=== PATIENT | female | born 1980 | race Caucasian/White ===

== ENCOUNTER 2023-03-23 22:38 | Emergency (ER) | payer SELFPAY ==
[2023-03-24 00:29] LABS: Absolute Lymphocytes (CBC) 3.9 K/uL (0.7-4.9); Hematocrit 25.3 % (36.0-45.0); MCV 78.2 fL (80-100); MPV 8.5 fL (7.6-11.3); Platelets 301 thou/uL (152-406); RBC Red Blood Cell Count 3.23 M/uL (3.86-4.86)
[2023-03-24 00:44] LABS: Specific Gravity 1.032 (1.005-1.030)
[2023-03-24 00:46] LABS: Specific Gravity > 1.030 (1.005-1.030); Urine Bacteria None Seen /HPF (<20); Urine Bilirubin NEGATIVE (Negative); Urine Blood Trace (Negative); Urine Clarity Turbid (Clear); Urine Color Yellow (Yellow); Urine Glucose NEGATIVE (Negative); Urine Mucus 4+ /HPF (None Seen); Urine Protein 1+ (Negative); Urine RBC <5 /HPF (None Seen); Urine Urobilinogen 1+ (Normal); Urine pH 5.5 (5.0-7.0)
[2023-03-24 00:48] LABS: Albumin 3.8 g/dL (3.4-5.0); Bilirubin Total 0.4 mg/dL (0.2-1.0); Potassium 3.7 mEq/L (3.5-5.1); Protein, Total 7.7 g/dL (6.4-8.2)
--- NOTE | 2023-03-24 01:25 | EDPHYS ---
Physician Documentation [facility] Name: Carmen Jimenez Age: 42 yrs Sex: Female : 1980 Arrival Date: 03/23/2023 Time: 22:38 Bed 12 Private MD: ED Physician Toño Nickerson HPI: 03/23 23:57 This 42 yrs old Female presents to ER via Ambulatory with complaints of Vaginal rn Bleeding, Abdominal Pain. 23:57 The patient presents with vaginal bleeding that is moderate, with clots. Onset: The rn symptoms/episode began/occurred 3 day(s) ago. Modifying factors: The symptoms are alleviated by nothing, the symptoms are aggravated by nothing. Associated signs and symptoms: Pertinent positives: cramping, Pertinent negatives: fever. Severity of symptoms: At their worst the symptoms were moderate, in the emergency department the symptoms are unchanged. The patient has experienced similar episodes in the past. Patient reports irregular periods for a long time, has been told she has anemia in the past, has never been here before and does not recall her baseline hemoglobin. Reports this current menstrual period is heavier than normal and has been bleeding for 3 days, worse today. Denies any syncope. No blood thinners. Just moved here.. Historical: - Allergies: 23:16 Zithromax Z-Miguelangel; pf1 23:16 Morphine; pf1 - PMHx: 23:16 thyroid cancer; Anemia; pf1 - PSHx: 23:16 partial thyroidectomy; Ligation of fallopian tube; pf1 - Immunization history:: Adult Immunizations up to date, Client reports having NOT received the Covid vaccine. Last tetanus immunization: < 10 years ago Flu vaccine is not up to date. - Social history:: Smoking status: Patient denies any tobacco usage or history of. Patient uses street drugs, marijuana, Patient/guardian denies using alcohol. - Family history:: not pertinent. - Hospitalizations: : No recent hospitalization is reported. ROS: 23:57 Constitutional: Negative for fever, chills, and weight loss, Cardiovascular: Negative rn for chest pain, palpitations, and edema, Respiratory: Negative for shortness of breath, cough, wheezing, and pleuritic chest pain, Abdomen/GI: Positive for lower abdominal cramping : Positive for vaginal bleeding Neuro: Positive for generalized weakness Exam: 23:57 Constitutional: This is a well developed, well nourished patient who is awake, alert, rn and in no acute distress. Head/Face: Normocephalic, atraumatic. Cardiovascular: Regular rate and rhythm. No pulse deficits. Respiratory: Speaking full sentences, unlabored. No increased work of breathing, no retractions or nasal flaring. Abdomen/GI: Soft, nontender, no rebound Skin: Warm, dry MS/ Extremity: Pulses equal, no cyanosis. Neuro: Awake and alert, GCS 15 Vital Signs: 23:02 BP 113 / 77; Pulse 70; Resp 18; Temp 97.7; Pulse Ox 100% on R/A; Weight 111.13 kg; pf1 Height 5 ft. 9 in. ; 03/24 00:30 BP 105 / 77; Pulse 63; Resp 16; Pulse Ox 99% on R/A; Pain 0/10; pf1 03/23 23:02 Body Mass Index 36.18 (111.13 kg, 175.26 cm) pf1 03/24 00:30 Pain Scale: Adult pf1 MDM: 03/23 22:51 Patient medically screened. rn 03/24 01:23 Differential diagnosis: menometrorrhagia, menorrhea, ovarian cyst, uterine fibroids. rn 01:24 Data reviewed: vital signs, nurses notes, lab test result(s), radiologic studies, rn ultrasound, and as a result, I will discharge patient. Counseling: I had a detailed discussion with the patient and/or guardian regarding the historical points, exam findings, and any diagnostic results supporting the discharge/admit diagnosis, lab results, radiology results, the need for outpatient follow up, to return to the emergency department if symptoms worsen or persist or if there are any questions or concerns that arise at home. Special discussion: I discussed with the patient/guardian in detail that at this point there is no indication for admission to the hospital. It is understood, however, that if the symptoms persist or worsen the patient needs to return immediately for re-evaluation. Based on the history and exam findings, there is no indication for further emergent testing or inpatient evaluation. I discussed with the patient/guardian the need to see the OB Gyne specialist for further evaluation of the symptoms. ED course: Ultrasound shows uterine fibroid and ovarian cyst. No other acute findings. Stable vital signs. Hemoglobin is 8.5 and likely near patient's baseline. Patient states has been bleeding like this since her 20s and iron tablets do not agree with her. Recommend gynecological follow-up and given return precautions. No indication for emergent transfusion at this time.. 03/23 23:16 Order name: CBC with Diff; Complete Time: 00:55 rn 03/23 23:16 Order name: CMP; Complete Time: 00:55 rn 03/23 23:16 Order name: Test, Urine; Complete Time: 00:55 rn 03/23 23:16 Order name: Urinalysis w/ reflexes; Complete Time: 00:55 rn 03/23 23:16 Order name: US Pelvis Complete rn 03/23 23:16 Order name: IV Saline Lock; Complete Time: 00:19 rn 03/23 23:16 Order name: Labs collected and sent; Complete Time: 00:19 rn Administered Medications: No medications were administered Disposition Summary: 03/24/23 01:25 Discharge Ordered Location: Home rn Problem: an ongoing problem rn Symptoms: are unchanged rn Condition: Stable rn Diagnosis - Leiomyoma of uterus, unspecified rn - Abnormal uterine and vaginal bleeding, unspecified rn - Anemia, unspecified rn Followup: rn - With: Private Physician - When: As needed - Reason: Recheck today's complaints, Re-evaluation by your physician Discharge Instructions: - Discharge Summary Sheet rn - Abnormal Uterine Bleeding rn - Uterine Fibroids rn Forms: - Medication Reconciliation Form rn - Thank You Letter rn - Antibiotic family law attorney - Prescription Opioid Use rn - Patient Portal Instructions rn - Leadership Thank You Letter rn Prescriptions: - Myfembree 40-1-0.5 mg Oral tablet - take 1 tablet by ORAL route daily; 30 tablet; Refills: 0, Product Selection rn Permitted Signatures: Dispatcher [employer] Toño Hernandez MD MD rn Finley, Pamala, RN RN pf1
--- NOTE | 2023-03-24 01:25 | ER ---
Nurse's Notes [facility] Name: Carmen Jimenez Age: 42 yrs Sex: Female : 1980 Arrival Date: 03/23/2023 Time: 22:38 Bed 12 Private MD: Diagnosis: Leiomyoma of uterus, unspecified;Abnormal uterine and vaginal bleeding, unspecified;Anemia, unspecified Presentation: 03/23 23:02 Chief complaint: Patient states: Pelvic cramping pain of 8 with vaginal bleeding and pf1 clots, onset 3 days, heavier menstrual cycle more than normal. Patient stated went through 3 super tampons in the past 1 hour. Coronavirus screen: Vaccine status: Patient reports being unvaccinated. Client denies travel out of the [place] in the last 14 days. At this time, the client does not indicate any symptoms associated with coronavirus-19. Ebola Screen: Patient negative for fever greater than or equal to 101.5 degrees Fahrenheit, and additional compatible Ebola Virus Disease symptoms. Initial Sepsis Screen: Does the patient meet any 2 criteria? No. Patient's initial sepsis screen is negative. Does the patient have a suspected source of infection? No. Patient's initial sepsis screen is negative. Risk Assessment: Do you want to hurt yourself or someone else? Patient reports no desire to harm self or others. 23:02 Method Of Arrival: Ambulatory pf1 23:02 Acuity: ANAT 3 pf1 Triage Assessment: 03/24 02:26 General: Appears. pf1 Historical: - Allergies: 03/23 23:16 Zithromax Z-Miguelangel; pf1 23:16 Morphine; pf1 - PMHx: 23:16 thyroid cancer; Anemia; pf1 - PSHx: 23:16 partial thyroidectomy; Ligation of fallopian tube; pf1 - Immunization history:: Adult Immunizations up to date, Client reports having NOT received the Covid vaccine. Last tetanus immunization: < 10 years ago Flu vaccine is not up to date. - Social history:: Smoking status: Patient denies any tobacco usage or history of. Patient uses street drugs, marijuana, Patient/guardian denies using alcohol. - Family history:: not pertinent. - Hospitalizations: : No recent hospitalization is reported. Screenin/15 00:19 [facility] ED Fall Risk Assessment (Adult) History of falling in the last 3 months, bp including since admission No falls in past 3 months (0 pts). Abuse screen: Denies threats or abuse. Denies injuries from another. Nutritional screening: No deficits noted. Tuberculosis screening: No symptoms or risk factors identified. Assessment: 00:05 General: Received pt from US via WC. Pt is AAO x4, reports lower abdominal pain and kb3 heavy menstrual bleeding x3 days.. 00:05 Pain: Complains of pain in right lower quadrant and left lower quadrant Pain does not kb3 radiate. Pain currently is 8 out of 10 on a pain scale. Quality of pain is described as crampy, Pain began 2-3 days ago. : Urine is clear, Reports vaginal bleeding that is bright red, with clots, heavy flow. 01:00 General: Appears in no apparent distress. comfortable, obese, well groomed, well pf1 developed, Behavior is calm, cooperative, appropriate for age, quiet. Vital Signs: 03/23 23:02 BP 113 / 77; Pulse 70; Resp 18; Temp 97.7; Pulse Ox 100% on R/A; Weight 111.13 kg; pf1 Height 5 ft. 9 in. ; 03/24 00:30 BP 105 / 77; Pulse 63; Resp 16; Pulse Ox 99% on R/A; Pain 0/10; pf1 03/23 23:02 Body Mass Index 36.18 (111.13 kg, 175.26 cm) pf1 03/24 00:30 Pain Scale: Adult pf1 ED Course: 03/23 00:05 Arm band placed on. pf1 22:43 Patient arrived in ED. kj1 22:51 Toño Nickerson MD is Attending Physician. rn 23:16 Triage completed. pf1 23:20 Yulissa Mcneal, PATRIC is Primary Nurse. kd3 03/24 00:05 No provider procedures requiring assistance completed. kb3 00:05 Provided Education on: plan of care. kb3 00:10 US Pelvis Complete In Process Unspecified. EDMS 00:19 Inserted saline lock: 22 gauge in right antecubital area, using aseptic technique. bp Blood collected. 00:19 Patient has correct armband on for positive identification. Bed in low position. Call bp light in reach. Adult w/ patient. 01:42 IV discontinued, intact, bleeding controlled, No redness/swelling at site. Pressure pf1 dressing applied. Administered Medications: No medications were administered Medication: 00:05 VIS not applicable for this client. kb3 Outcome: 01:25 Discharge ordered by . rn 01:41 Discharged to home ambulatory. pf1 01:41 Condition: improved 01:41 Discharge instructions given to patient, Instructed on discharge instructions, follow up and referral plans. Demonstrated understanding of instructions, follow-up care, medications, Prescriptions given X 1. 01:42 Patient left the ED. pf1 Signatures: Dispatcher [employer] EDMS Toño Nickerson MD MD rn Peltier, Brian, RN RN Aria Gilliam kj1 Yulissa Mcneal RN RN kd3 Danyelle Lau RN RN kb3 Letitia Henry RN RN pf1
[2023-03-24 01:56] VITALS: BP 113/77; TEMP 97.7; O2SAT 100
--- NOTE | 2023-03-24 18:07 | RAD REPORT ---
EXAM DESCRIPTION: US - Pelvis Complete - 03/24/2023 12:07 am CLINICAL HISTORY: 42 years Female, VAGINAL BLEEDING TECHNIQUE: Real-time transabdominal and transvaginal (transvaginal sonography performed for better v isualization of pelvic contents)sonographic imaging of the pelvis was performed. COMPARISON: None. FINDINGS: UTERUS: Uterus measures 4.7 x 2.8 x 4.8 cm. No focal myoma. Nabothian cysts are noted. ENDOMETRIUM: Endometrium measures 5 mm in thickness. No endometrial free fluid. OVARIES: The ovaries are normal in size with physiologic follicles; for which no further workup is wa rranted. Right ovary measures 3.2 x 1.8 x 2.5 cm, left ovary measures 3.3 x 2.3 x 2.4 cm. There is a left ovary 2.4 cm simple cyst. Doppler color flow with normal arterial and venous waveforms are seen within bilateral ovaries. ADNEXA: No adnexal mass or abnormality. FREE FLUID: No free fluid in the pelvic cul-de-sac. IMPRESSION: 1. Left ovary 2.4 cm simple cyst.No follow-up imaging is recommended.Reference: Radiol ogy 2019 May;293(2):359-371. 2. Otherwise, negative pelvic ultrasound. Electronically signed by: Randy Cruz MD 03/24/2023 12:31 AM CDT Due to temporary technical issues with the PACS/Fluency reporting system, reports are being signed by the in house radiologists without review as a courtesy to insure prompt reporting. The interpreting radiologist is fully responsible for the content of the report.
== END 2023-03-24 01:42 | disposition home or self-care (01) ==
LOC: ER 22:38
DX: D25.9 Leiomyoma of uterus, unspecified (principal); D64.9 Anemia, unspecified
CPT/HCPCS: 36415; 76856; 80053; 81001; 81025; 85025; 99284